=== PATIENT | male | born 1945 | race Hispanic/Latino ===

== ENCOUNTER 2022-02-25 05:44 | Day surgery (SDC) | payer OTHER ==
[2022-02-19 16:16] LABS: BASOPHILS % (AUTO) 0.6 % (0.0-5.0); EOSINOPHILS % (AUTO) 2.4 % (0.0-8.0); HEMATOCRIT 39.8 % (42-54); MEAN CORPUSCULAR HEMOGLOBIN 29.3 pg (27.0-33.0); MEAN CORPUSCULAR HGB CONC 33.4 g/dL (32.0-36.0); MEAN CORPUSCULAR VOLUME 87.7 fL (79-99); MONOCYTES % (AUTO) 9.2 % (3.0-13.0); NEUTROPHILS % (AUTO) 59.5 % (40.0-77.0); PLATELET COUNT (AUTO) 184 K/uL (130-400); RED BLOOD CELL COUNT(AUTO) 4.54 MIL/uL (4.50-6.20); RED CELL DISTRIBUTION WIDTH 13.6 % (11.0-15.5); WHITE BLOOD COUNT (AUTO) 7.2 K/uL (4.8-10.8)
[2022-02-19 16:29] LABS: INR 2.61 (0.85-1.15); PROTHROMBIN TIME 26.9 SEC (9.6-11.6)
[2022-02-19 16:30] LABS: PARTIAL THROMBOPLASTIN TIME 39.3 SEC (26.3-35.5)
[2022-02-19 16:37] LABS: CREATININE 1.1 mg/dL (0.5-1.5); POTASSIUM 4.3 mmol/L (3.5-5.1)
[2022-02-24 14:47] VITALS: BP 143/68
[~2022-02-25] VITALS: Ht 171.4 cm; Wt 114.9 kg
[2022-02-25] VITALS (9 sets, daily range): BP systolic 92–134; BP diastolic 61–79
[~2022-02-25 05:44] MED LIST: AMLO-257 PO; CEFAZOLIN SODIUM 2 GM VIAL IV SCH; ENAL5TAB17 PO; ISOS60TA77 PO; METF-446 PO; METO50TA18 PO; RANO10005 PO; SIMV80TA91 PO; TRAZ-185 PO; WARF6TAB6 PO
[2022-02-25] MEDS ORDERED: 0.9%NACL 1000ML 1,000 ML IV ONE (06:20)
[2022-02-25 06:22] LABS: INR 1.24 (0.85-1.15); PROTHROMBIN TIME 13.4 SEC (9.6-11.6)
[2022-02-25] MEDS ORDERED: CEFAZOLIN SODIUM 1 GM VIAL ONE (07:06)
[2022-02-25] MEDS ORDERED: BUPIVACAINE/PF 0.25% 30ML VIAL IJ ONE (07:06)
[2022-02-25] MEDS ORDERED: LIDOCAINE HCL 1% MDV 50ML VIAL ONE (07:06)
[2022-02-25] MEDS ORDERED: MIDAZOLAM HCL 1 MG/ML 2ML VIAL ONE ×2 (07:27→08:02)
[2022-02-25] MEDS ORDERED: MEPERIDINE-PF 25 MG/ML SYG ONE ×2 (07:28→08:02)
[2022-02-25] MEDS ORDERED: IOHEXOL-350 50ML VIAL IV ONE (08:26)
[2022-02-25] MEDS ORDERED: ACETAMINOPHEN WITH CODEINE 1 TAB TAB PO PRN (10:00)
== END 2022-02-25 13:00 | disposition home or self-care (01) ==
LOC: DAH 05:44
PROVIDERS: ATTEND Internal Medicine Cardiovascular Disease
DX: I25.5 Ischemic cardiomyopathy (principal); I11.0 Hypertensive heart disease with heart failure; I50.42 Chronic combined systolic (congestive) and diastolic (congestive) heart failure; I44.5 Left posterior fascicular block; I25.10 Atherosclerotic heart disease of native coronary artery without angina pectoris; E11.9 Type 2 diabetes mellitus without complications; E78.5 Hyperlipidemia, unspecified; I87.2 Venous insufficiency (chronic) (peripheral); K21.9 Gastro-esophageal reflux disease without esophagitis; Z79.01 Long term (current) use of anticoagulants; Z79.899 Other long term (current) drug therapy; Z79.84 Long term (current) use of oral hypoglycemic drugs; Z98.890 Other specified postprocedural states; Z86.718 Personal history of other venous thrombosis and embolism; Z82.49 Family history of ischemic heart disease and other diseases of the circulatory system; Z83.3 Family history of diabetes mellitus; Z95.0 Presence of cardiac pacemaker
CPT/HCPCS: 33249; 36415 ×2; 71045; 80048; 82948; 85025; 85610 ×2; 85730 ×2; 93005; A4215; A4216; A4221; A4222; A4223 ×3; A4606; A4663; C1721; C1769; C1895 ×2; J0690; J2175 ×2; J2250 ×2; J3490 ×2; J7030; Q9967; 99156; 99157

== ENCOUNTER → 2024-08-16 | Outpatient (CLI) | payer OTHER ==
[~2024-08-16] MED LIST changes: -CEFAZOLIN SODIUM 2 GM VIAL IV SCH; +ENAL-87 PO; -ENAL5TAB17 PO; +IOHEXOL 350 MG/ML 100ML INFUS..BTL IV ONE
--- NOTE | 2024-08-16 10:44 | HMCIMG ---
CT ANGIO TAVR PROTOCOL HISTORY: Shortness of breath COMPARISON: None TECHNIQUE: CT angiography of the chest , abdomen and pelvis was performed. The study was performed using angiographic technique with maximum intensity projection reconstruction images. Patient was given 100 cc of Omnipaque through intravenous route. FINDINGS: No CT evidence of filling defect is seen to suggest pulmonary embolus. No CT evidence of aortic dissection is seen. No evidence of parenchymal disease is seen. No CT evidence of pleural effusion or pericardial effusion is seen. The heart is enlarged. Poststernotomy changes are seen. Pacemaker is seen entering from the left. The study is limited due to patient's large body habitus. There is IVC filter. Please see separate CT angiogram report of the coronary arteries. The liver, spleen, adrenal glands and pancreas are unremarkable. There is no evidence of hydronephrosis bilaterally. No evidence of renal stone is seen. Fecal material is seen in the colon. There are normal size retroperitoneal and mesenteric lymph nodes. No ascites is seen. Atherosclerotic changes are present. There is diffuse atherosclerotic disease. No evidence of abdominal aortic aneurysm is seen. 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 Less than 40% stenosis is seen of the renal arteries bilaterally with calcified plaques. The visualized portion of the iliac and femoral arterial systems are grossly patent. Pelvic sidewalls are symmetric bilaterally. Bladder is well distended without wall thickening. IMPRESSION: 1. There is diffuse atherosclerotic disease. No evidence of abdominal aortic aneurysm is seen. 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 Less than 40% stenosis is seen of the renal arteries bilaterally with calcified plaques. CT was performed with one or more following dose reduction techniques: automated exposure control, adjustment of the mA and kv according to patient's size, or use of a iterative reconstruction technique.
--- NOTE | 2024-08-22 07:57 | CARDIOLOGY ---
RAD REPORT: [facility] CT ANGIO RADIOLOGY REPORT: CORONARY CT ANGIOGRAPHY DATE: Aug 22, 2024 QUALITY: Excellent CLINICAL HISTORY AND INDICATION: [ TAVR ] TECHNIQUE: After obtaining a preliminary knife setter image, contrast imaging performed on an [employer] [id number] scanner. A dedicated, limited window, coronary imaging protocol was used, with single breath-hold, retrospective ECG gating, and automated arrhythmia rejection. 100 cc of low osmolar contrast agent: Omnipaque 350 was delivered via a 18-gauge IV catheter in the right antecubital fossa, using a power injector and followed by 60 cc of normal saline bolus as a chaser. Collimated images were reformatted at 0.5 mm intervals, and sent to an offline independent workstation for interpretation, using 3D anatomic reconstructions: Curved multiplanar reconstructions, maximum intensity projections, and multiplanar imaging. No metoprolol was administered prior to scanning due to low baseline heart rate. No SL nitroglycerin was given. CORONARY ARTERY DESCRIPTIONS: The coronary arteries arise in normal position. Left main coronary artery: Normal caliber vessel that tifurcates into the LAD, ramus and LCx. [employer] Left main. Left anterior descending coronary artery: Normal caliber vessel and gives rise to diagonal and septal branches. Ramus intermedius artery: Not well visualized. Left circumflex coronary artery: Normal caliber, nondominant and gives rise to a large OM branch. Right coronary artery:Medium caliber. [employer] mid RCA. CORONARY ARTERY BYPASS GRAFT DESCRIPTIONS: Patent BARTON to LAD, diffusely disease after anastomosis. Patent SVG to LCx. Patent SVG to ramus. Thoracic Aorta: Normal diameter. Tawnya John MD Cardiovascular Disease [facility] TAWNYA JOHN MD Aug 22, 2024 07:57
== END | disposition home or self-care (01) ==
LOC: RAH 08:34
PROVIDERS: ATTEND Internal Medicine Cardiovascular Disease
DX: I25.110 Atherosclerotic heart disease of native coronary artery with unstable angina pectoris (principal); I51.7 Cardiomegaly; R06.02 Shortness of breath; I70.90 Unspecified atherosclerosis; N32.89 Other specified disorders of bladder; Z98.890 Other specified postprocedural states
CPT/HCPCS: 74174; 75574; Q9967

== ENCOUNTER → 2024-10-19 | Outpatient (CLI) | payer OTHER ==
[~2024-10-19] MED LIST changes: +IOHEXOL-350 50ML VIAL IV ONE
--- NOTE | 2024-10-19 14:39 | HMCIMG ---
CT ANGIO TAVR PROTOCOL REASON: Nonrheumatic aortic (valve) stenosis TAVR COMPARISON: None TECHNIQUE: TAVR CT protocol was performed from thoracic inlet through the perineum, cardiac gated, at 1 mm sections. Images were obtained following IV contrast, 100 cc Omnipaque 350. FINDINGS: Lungs are clear. There are no focal masses or infiltrates. There is mild cardiomegaly without pulmonary vascular congestion. There is no evidence of aortic aneurysm or dissection. Hilar and mediastinal structures appear normal. Bony thorax is unremarkable. There is pacemaker in place. There is been a previous median sternotomy. There are no focal liver lesions. Spleen, kidneys, pancreas and gallbladder appear unremarkable. Bowel loops appear normal. There is no free air or fluid. There are no focal fluid collections. There is a vena cava filter in place in the inferior vena cava. Aorta appears normal with no aneurysm. Pelvic soft tissues are unremarkable. Anterior abdominal wall is intact. Lumbar spine, pelvis and proximal femurs appear normal. IMPRESSION: 1. The negative TAVR protocol CT chest, abdomen and pelvis.
== END | disposition home or self-care (01) ==
LOC: RAH 09:47
PROVIDERS: ATTEND Internal Medicine Cardiovascular Disease
DX: I35.0 Nonrheumatic aortic (valve) stenosis (principal); I51.7 Cardiomegaly
CPT/HCPCS: 74174; 75574; Q9967 ×2